=== PATIENT | male | born 1960 | race Caucasian/White ===

== ENCOUNTER 2017-04-04 17:46 | Emergency (ER) | payer MEDICAID ==
[~2017-04-04] VITALS: Ht 180.3 cm; Wt 98.0 kg
[2017-04-04] MEDS ORDERED: MORPHINE SULFATE 10 MG/ML CPJ IM ONE (18:45)
[2017-04-04] MEDS ORDERED: KETOROLAC 30MG/ML VIAL IM ONE (18:45)
[2017-04-04 20:44] VITALS: BP 153/85
== END 2017-04-04 20:45 | disposition home or self-care (01) ==
LOC: ER 18:13
DX: S40.011A Contusion of right shoulder, initial encounter (principal); S80.02XA Contusion of left knee, initial encounter; Y35.893A Legal intervention involving other specified means, suspect injured, initial encounter; V43.62XA Car passenger injured in collision with other type car in traffic accident, initial encounter; Y93.89 Activity, other specified; Y92.488 Other paved roadways as the place of occurrence of the external cause
CPT/HCPCS: 71010; 73030; 73060; 73562; 96372; 99284; J1885; J2270

== ENCOUNTER 2022-09-16 02:05 | Inpatient (IN) | payer MEDICAID ==
[~2022-09-16] VITALS: Ht 177.8 cm; Wt 108.9 kg
[2022-09-16 04:09] LABS: CHLORIDE 106 mEq/L (98-107)
[2022-09-16 04:17] LABS: HEMATOCRIT. 50.4 % (42.0-52.0); HEMOGLOBIN. 17.4 g/dL (14.0-18.0); MEAN CORPUSCULAR HEMOGLOBIN 30.2 pg (28.0-32.0); MEAN CORPUSCULAR VOLUME 87.4 fL (80.0-94.0); MEAN PLATELET VOLUME 8.6 fl (7.4-10.4); PLATELET 211 x1000/uL (130-400); RED BLOOD CELL COUNT 5.77 mill/uL (4.7-6.1); RED CELL DISTRIBUTION WIDTH 13.6 % (11.6-14.6)
[2022-09-16 04:37] LABS: CLARITY URINE CLOUDY (CLEAR); COLOR URINE DARK YELLOW (YELLOW); KETONES URINE NEGATIVE (NEGATIVE); LEUKOCYTE ESTERASE URINE NEGATIVE (NEGATIVE); NITRITE URINE NEGATIVE (NEGATIVE); OCCULT BLOOD URINE NEGATIVE (NEGATIVE); PROTEIN URINE 1+ (NEGATIVE); SPECIFIC GRAVITY URINE 1.032 (1.005-1.030)
[2022-09-16] MEDS ORDERED: MAGNESIUM/ALUMINUM HYDROXIDE/SIMETHICONE 30ML UDC PO PRN (05:00)
[2022-09-16] MEDS ORDERED: ENOXAPARIN 40MG/0.4ML SYR SUBCUT SCH (05:00)
[2022-09-16] MEDS ORDERED: DOCUSATE SODIUM 100MG CAPSULE PO PRN (05:00)
[2022-09-16] MEDS ORDERED: SODIUM CHLORIDE 0.9% 1,000 ML IV SCH (05:00)
[2022-09-16] MEDS ORDERED: HYDROCODONE/ACETAMINOPHEN 5/325MG TABLET PO PRN (05:00)
[2022-09-16] MEDS ORDERED: DIPHENHYDRAMINE 50MG/ML VIAL IV PRN (05:00)
[2022-09-16] MEDS ORDERED: ACETAMINOPHEN 325MG TABLET PO PRN ×2 (05:00)
[2022-09-16] MEDS ORDERED: ONDANSETRON HCL 4MG/2ML INJ IV PRN (05:00)
[2022-09-16] MEDS ORDERED: CLONIDINE 0.1MG TABLET PO PRN (05:00)
[2022-09-16] MEDS ORDERED: GUAIFENESIN 200MG/10ML SUGAR FREE UDC PO PRN (05:00)
[2022-09-16] MEDS ORDERED: ASPIRIN 325MG EC TABLET PO NR (05:00)
[2022-09-16] MEDS ORDERED: NITROGLYCERIN 0.4MG TABLET SL SL PRN (05:00)
[2022-09-16 05:10] LABS: PLATELET ESTIMATE NORMAL
[2022-09-16] MEDS ORDERED: DEXTROSE 50% WATER 50ML SYRINGE IV PRN (05:30)
[2022-09-16] MEDS ORDERED: IOHEXOL-350 100 ML BOTTLE ONE (05:39)
[2022-09-16] MEDS ORDERED: CEFTRIAXONE 1,000 MG in DEXTROSE 5% WATER 50 ML IV SCH (06:00)
[2022-09-16] MEDS ORDERED: IPRATROPIUM/ALBUTEROL 0.5-3(2.5)MG/3ML NEB HHN SCH (06:00)
[2022-09-16 06:15] LABS: CREATINE KINASE MB FRACTION 5.2 ng/mL (0.5-3.6)
[2022-09-16] MEDS ORDERED: CEFTRIAXONE 1GM PREMIX 50 ML IV NR (07:00)
[2022-09-16] MEDS: INSULIN LISPRO 100 UNITS/ML SUBCUT SCH ×2 (08:20→12:31)
[2022-09-16] MEDS ORDERED: PANTOPRAZOLE SODIUM 40 MG/VIAL IV SCH (09:00)
[2022-09-16] MEDS ORDERED: ENOXAPARIN 30MG/0.3ML SYR SUBCUT SCH (09:00)
[2022-09-16] MEDS: BLOOD SUGAR DIAGNOSTIC STRIP TEST SCH ×2 (09:41→11:35)
[2022-09-16 10:00] VITALS: BP 139/80
[2022-09-16 10:33] VITALS: BP 139/80
[2022-09-16 12:00] VITALS: BP 132/77
[2022-09-16 12:57] LABS: SODIUM URINE RANDOM 52 mEq/L
[2022-09-16 16:00] VITALS: BP 148/66
[2022-09-16] MEDS ORDERED: METHYLPREDNISOLONE SOD SUCC 40 MG/ML VIAL IV NR (16:00)
[2022-09-16] MEDS ORDERED: P20 PO (16:05)
[2022-09-16] MEDS ORDERED: NALOXONE HCL 0.4MG/ML VIAL IV PRN (16:45)
[2022-09-16 16:57] VITALS: BP 148/66
[2022-09-17] MEDS ORDERED: CEFTRIAXONE 1,000 MG in DEXTROSE 5% WATER 50 ML IV SCH (07:00)
[2022-09-17] MEDS ORDERED: PREDNISONE 20MG TABLET PO SCH (09:00)
[2022-09-17] MEDS ORDERED: ASPIRIN 81MG EC TABLET PO SCH (09:00)
== END 2022-09-16 17:10 | disposition home or self-care (01) | DRG 204 ==
LOC: ER 02:16 → 8WST 04:27 → EDBEDREQSVC 07:48
PROVIDERS: ADMIT Internal Medicine; ATTEND Internal Medicine
DX: R55 Syncope and collapse (principal); N17.9 Acute kidney failure, unspecified; E83.41 Hypermagnesemia; L50.9 Urticaria, unspecified; T78.40XA Allergy, unspecified, initial encounter; E83.52 Hypercalcemia; R73.9 Hyperglycemia, unspecified; T38.0X5A Adverse effect of glucocorticoids and synthetic analogues, initial encounter; I24.8 Other forms of acute ischemic heart disease; Z87.891 Personal history of nicotine dependence; Z79.82 Long term (current) use of aspirin; X58.XXXA Exposure to other specified factors, initial encounter; Y92.89 Other specified places as the place of occurrence of the external cause
CPT/HCPCS: 36415; 71045; 71275; 76770; 80053; 81003; 82550; 82553; 82962; 83036; 83605; 83735; 83935; 84145; 84300; 84484; 85025; 85379; 93005; 93880; 93970; 99285; C9113; J0696; J1650; J1815; J2920; J7060; Q9967